=== PATIENT | male | born 1985 | race Caucasian/White ===

== ENCOUNTER 2018-09-15 01:40 | Emergency (ER) | payer OTHER | END 2018-09-15 05:37 | disposition other institution (70) | LOC: ED 01:40 | DX: Z02.89 Encounter for other administrative examinations (principal) ==

== ENCOUNTER 2018-09-15 01:40 | Emergency (ER) | payer OTHER ==
[~2018-09-15] VITALS: Ht 172.7 cm; Wt 86.2 kg
[2018-09-15 01:43] VITALS: Ht 172.7 cm; Wt 86.2 kg
[2018-09-15 02:47] LABS: CALCIUM 9.8 mg/dL (8.5-10.1); CHLORIDE SERUM 107 mmol/L (98-107); CREATININE SERUM 1.1 mg/dL (0.7-1.3); GFR1 > 60 mL/min; GLUCOSE SERUM 122 mg/dL (74-106); POTASSIUM SERUM 3.2 mmol/L (3.5-5.1); SODIUM SERUM 143 mmol/L (136-145)
[2018-09-15 02:55] LABS: PLATELET COUNT 390 x10^3mcL (130-400); RED CELL DISTRIBUTION WIDTH 13.1 % (11.5-14.5)
[2018-09-15 02:57] LABS: ALBUMIN 4.2 g/dL (3.4-5.0); ALKALINE PHOSPHATASE 61 U/L (46-116); ALT/SGPT 67 U/L (16-63); AST/SGOT 29 U/L (15-37); BILIRUBIN TOTAL 2.14 mg/dL (0.20-1.00); TOTAL PROTEIN, SERUM 7.9 g/dL (6.4-8.2)
[2018-09-15 03:14] LABS: BASOPHIL % 0.2 % (0-2)
[2018-09-15 04:34] LABS: AMPHETAMINE QUAL UR POSITIVE (See below)
[2018-09-15 05:37] VITALS: BP 142/84
== END 2018-09-15 05:37 | disposition other institution (70) ==
LOC: ED 01:40
PROVIDERS: Emergency Medicine
DX: F15.10 Other stimulant abuse, uncomplicated (principal); E87.6 Hypokalemia; S00.83XA Contusion of other part of head, initial encounter; X58.XXXA Exposure to other specified factors, initial encounter; Y93.89 Activity, other specified; Y92.89 Other specified places as the place of occurrence of the external cause; Y99.8 Other external cause status
CPT/HCPCS: 36415; G0480; Q0092